=== PATIENT | male | born 1980 | race Caucasian/White ===

== ENCOUNTER 2018-05-21 12:03 | Day surgery (SDC) | payer OTHER ==
[2018-05-17 11:12] LABS: HEMATOCRIT 44.2 % (37.9-51.0); HEMOGLOBIN 15.4 g/dL (13.5-17.0); MEAN CORPUSCULAR HEMOGLOBIN 30.7 pg (27.0-33.4); MEAN CORPUSCULAR HGB CONC 34.8 g/dL (32.0-36.0); MEAN CORPUSCULAR VOLUME 88 fl (80-97); PLATELET COUNT 368 10^3/uL (150-450); RED BLOOD COUNT 5.01 10^6/uL (4.35-5.55); RED CELL DISTRIBUTION WIDTH 13.8 % (11.5-14.0); WHITE BLOOD COUNT 8.9 10^3/uL (4.0-10.5)
[2018-05-17 11:16] LABS: APPEARANCE,URINE CLEAR; BILIRUBIN,URINE NEGATIVE (NEGATIVE); COLOR,URINE YELLOW; GLUCOSE, URINE NEGATIVE (NEGATIVE); KETONES,URINE NEGATIVE (NEGATIVE); LEUKOCYTE ESTERASE,URINE NEGATIVE (NEGATIVE); NITRITE,URINE NEGATIVE (NEGATIVE); PROTEIN,URINE NEGATIVE (NEGATIVE); URINE SPECIFIC GRAVITY 1.021; UROBILINOGEN,URINE NEGATIVE mg/dL (<2.0)
--- NOTE | 2018-05-17 11:23 | RADIOLOGY REPORT (SQ) ---
EXAM DESCRIPTION: CHEST PA/LATERAL COMPLETED DATE/TIME: 05/17/2018 10:59 am REASON FOR STUDY: PRE-OP COMPARISON: None. EXAM PARAMETERS: NUMBER OF VIEWS: two views TECHNIQUE: Digital Frontal and Lateral radiographic views of the chest acquired. RADIATION DOSE: NA LIMITATIONS: none FINDINGS: LUNGS AND PLEURA: No opacities, masses or pneumothorax. No pleural effusion. MEDIASTINUM AND HILAR STRUCTURES: No masses or contour abnormalities. HEART AND VASCULAR STRUCTURES: Heart normal size. No evidence for failure. BONES: No acute findings. HARDWARE: None in the chest. OTHER: No other significant finding. IMPRESSION: NO SIGNIFICANT RADIOGRAPHIC FINDING IN THE CHEST. TECHNICAL DOCUMENTATION: JOB ID: [id number] [employer]- All Rights Reserved Reading location - IP/workstation name: [email or web address]
[2018-05-17 11:35] LABS: ANION GAP 12 (5-19); BLOOD UREA NITROGEN 23 mg/dL (7-20); CALCIUM 10.5 mg/dL (8.4-10.2); CARBON DIOXIDE 30 mmol/L (22-30); CHLORIDE 103 mmol/L (98-107); GLUCOSE 104 mg/dL (75-110); POTASSIUM 4.9 mmol/L (3.6-5.0); SODIUM 145.3 mmol/L (137-145)
[~2018-05-21 12:03] MED LIST: BUPIVACAINE HCL 0.5 % INJ/PF 30 ML SDV ONE; CEFAZOLIN 2 GM/D5W RTU 2 GM/50 ML RTUPB IV PRN; FENTANYL CITRATE INJ/PF 100 MCG/2 ML AMPUL ONE; LACTATED RINGERS 1000 ML IV PRN; LIDOCAINE 0.5% INJ-PF (5 MG/ML) 50 ML SDV SUBCUT PRN; MIDAZOLAM 2 MG/2 ML INJ ONE; PROPOFOL INJ 200 MG/20 ML VIAL IV ONE
--- NOTE | 2018-05-21 13:09 | EKG REPORT ---
SEVERITY:- NORMAL ECG - SINUS RHYTHM : Confirmed by: Faith Spain MD 21-May-2018 13:08:18
[2018-05-21] MEDS ORDERED: ACETAMINOPHEN 1,000 MG/100 ML RTUPB IV ONE (13:15)
[2018-05-21] MEDS ORDERED: CEFAZOLIN 2 GM/D5W RTU 2 GM/50 ML RTUPB IV ONE (13:16)
[2018-05-21] MEDS ORDERED: PROMETHAZINE HCL INJ 25 MG/1 ML VIAL IV PRN (13:55)
[2018-05-21] MEDS ORDERED: DIPHENHYDRAMINE HCL 50 MG/ML VIAL IV PRN (13:55)
[2018-05-21] MEDS ORDERED: MEPERIDINE HCL/PF INJ 25 MG/1 ML DISP.SYRIN IV PRN (13:55)
[2018-05-21] MEDS ORDERED: FENTANYL CITRATE INJ/PF 100 MCG/2 ML AMPUL IV PRN ×3 (13:55)
[2018-05-21] MEDS ORDERED: OXYCODONE-ACETAMINOPHEN 5-325 MG TABLET PO PRN (14:10)
[2018-05-21] MEDS ORDERED: MORPHINE SULFATE 10 MG/ML INJ IV PRN (14:10)
[2018-05-21] MEDS ORDERED: ONDANSETRON HCL INJ/PF 4 MG/2 ML SDV IV PRN (14:10)
--- NOTE | 2018-05-21 14:10 | Discharge Summary ---
Discharge Summary (SDC) - Discharge Final Diagnosis: Right 5th Metacarpal Base Fracture Date of Surgery: 05/21/18 Discharge Date: 05/21/18 Condition: Good Treatment or Instructions: Schedule Follow Up w/ Dr. Dallas Gray @ [facility] for Surgery to be seen in 10-14 days or as scheduled [place]: [place]: [place]: Ice and elevate Keep splint clean/dry/intact. If your fingers become numb please unwrap the Alphonse wrap but leave the splint in place, if the sensation does not return within 30 minutes please return to the emergency department. May begin finger range of motion attempting to make full fist. Please use ibuprofen (Motrin or Advil) 600-800 mg every 8 hours as needed for pain or fever DO NOT TAKE w/ TORADOL may use once TORADOL complete. You may also use acetaminophen (Tylenol) 1000 mg every 4-6 hours as needed for pain or fever. Please be aware that many medications contain acetaminophen, do not exceed a total of 1000 mg of acetaminophen every 6 hours. If ibuprofen and acetaminophen are not sufficient for your pain you may take the Percocet/[place]. Please be aware that the Percocet/[place] does contain Tylenol. Stool softener of choice when on pain medication. Prescriptions: Ketorolac Tromethamine [Toradol 10 mg Tablet] 10 mg PO Q8HP PRN #8 tablet PRN Reason: Oxycodone HCl/Acetaminophen [Percocet 5-325 mg Tablet] 1 tab PO Q6 PRN #25 tab PRN Reason: Discharge Diet: As Tolerated Respiratory Treatments at Home: Deep Breathing/Coughing Discharge Activity: No Lifting Over 10 Pounds, No Lifting/Push/Pulling Report the Following to Your Physician Immediately: Fever over 101 Degrees, Unusual Bleeding, Redness, Swelling, Warmth, Increased Soreness
--- NOTE | 2018-05-21 14:15 | Operative Report ---
Operative Report DATE OF SURGERY: 05/21/18 PREOPERATIVE DIAGNOSIS: Right intra-articular fifth metacarpal base fracture POSTOPERATIVE DIAGNOSIS: Same OPERATION: ORIF fifth intra-articular metacarpal base fracture SURGEON: ANTHONY SHARIF ANESTHESIA: GA COMPLICATIONS: None ESTIMATED BLOOD LOSS: Minimal PROCEDURE: Indication for above procedure: 38-year-old male who sustained injury to his right hand. Patient subsequently followed up at the [facility] where x-rays demonstrated fifth metacarpal base fracture and CT scan was done demonstrating widening diastases at the articular surface. At that point we discussed treatment options given the amount of intra-articular displacement decision was made to proceed with operative treatment despite delayed follow-up. Risks and benefits of the operative procedure were explained patient verbalized understanding consented for the procedure. Procedure In Detail: Patient was seen and evaluated in the preoperative holding area. The upper extremity was initialized and marked. Patient received 2g of Ancef IV for bacterial prophylaxis. Patient was taken back to the operative room where transferred to the operative table and placed under general anesthesia. Once they were adequately anesthetized a nonsterile tourniquet was placed on the upper extremity. A surgical team debriefing was performed ensuring all instrumentation was available, the surgical procedure was discussed with possible concerns reviewed. The upper extremity was prepped with chlorhexidine and alcohol and draped in a sterile fashion. A timeout was done identifying correct patient, procedure and extremity everyone in attendance agree with this and verbalized no concerns. The extremity was exsanguinated the tourniquet was inflated to 250 mmHg. Closed reduction was attempted to the fifth metacarpal base however given the longevity of the injury it was non-mobile. A 2 cm incision was made at the articular surface of the fifth metacarpal. Blunt dissection was performed a Nabb elevator was placed within the fracture site performing osteoclasis to free the underlying fragment. Once the fragment was adequately freed a 0.062 K wire was placed between the fourth and fifth metacarpal bases and maintaining reduction of the fifth metacarpal base articular surface there was evidence of bone loss centrally given the longevity however this bone loss was not correctable. While my therapy assistant maintained traction and reduction was held with a 0.62 K wire. A 0.045 K wire was placed obtaining fixation into the fragment and adjacent fourth metacarpal base. A second 0.045 K wire was placed obliquely from the fifth metacarpal into the articular fragment and adjacent fourth metacarpal base. At completion final C-arm fluoroscopy was obtained which demonstrated orthodoxy of fifth metacarpal base articular alignment was a small amount of bone loss along the central aspect but no articular step-off appreciated. There is no evidence of joint subluxation or dislocation. Wound was then copiously irrigated with normal saline. Skin was closed with interrupted 4-0 nylon suture. K wires were then kept outside the skin and bent. 20 cc of 0.5% bupivacaine without epinephrine was injected for postoperative pain control. Wound was dressed Xeroform 4 x 4's and patient was placed in a ulnar gutter splint leaving the IP joints free for range of motion. Tourniquet was deflated. Patient had good peripheral perfusion. Sponge counts, instrument counts, needle counts were correct. Patient was then awoken from anesthesia. Transferred from the operating room table to the operating room stretcher. There was no intraoperative complications patient tolerated procedure well stable to PACU. Postop plan: Patient followed up in 2 weeks at which point he will placed in a short arm cast with immobilization of the MCP joint and IP joints free. Will obtain radiographs out of splint at follow-up. Plan will be for pin removal 5-6 weeks postoperatively.
[2018-05-21] MEDS: FENTANYL CITRATE INJ/PF 100 MCG/2 ML AMPUL ONE ×2 (14:27→14:32)
--- NOTE | 2018-05-21 14:46 | RADIOLOGY REPORT (SQ) ---
EXAM DESCRIPTION: HAND RIGHT 2 VIEWS; NO CHG FLUORO COMPLETED DATE/TIME: 05/21/2018 2:31 pm REASON FOR STUDY: RIGHT 5TH METACARPAL PERCUTANEOUS PINNING ASST WITH FLUORO IN OR S62.316A DISP FX OF BASE OF FIFTH METACARPAL BONE, RIGHT KLINE COMPARISON: None. FLUOROSCOPY TIME: 4 images saved to PACS. TECHNIQUE: Intra-operative images acquired during surgical procedure to evaluate progress. NUMBER OF IMAGES: 4 LIMITATIONS: None. FINDINGS: Intraoperative images obtained during an are for localization. Norma wire fixation ov erlie the proximal 3rd through metacarpals. IMPRESSION: IMAGE(S) OBTAINED DURING PROCEDURE. Please see operative report for detailed descriptio n of the procedure. COMMENT: Quality ID [id number]: Final reports for procedures using fluoroscopy that document radiation exp osure indices, or exposure time and number of fluorographic images (if radiation exposure indices are not available) Please consult full operative report of the attending physician for description of the procedure. TECHNICAL DOCUMENTATION: JOB ID: [id number] [employer]- All Rights Reserved Reading location - IP/workstation name: [facility]-[email or web address]
--- NOTE | 2018-05-21 14:46 | RADIOLOGY REPORT (SQ) ---
EXAM DESCRIPTION: HAND RIGHT 2 VIEWS; NO CHG FLUORO COMPLETED DATE/TIME: 05/21/2018 2:31 pm REASON FOR STUDY: RIGHT 5TH METACARPAL PERCUTANEOUS PINNING ASST WITH FLUORO IN OR S62.316A DISP FX OF BASE OF FIFTH METACARPAL BONE, RIGHT KLINE COMPARISON: None. FLUOROSCOPY TIME: 4 images saved to PACS. TECHNIQUE: Intra-operative images acquired during surgical procedure to evaluate progress. NUMBER OF IMAGES: 4 LIMITATIONS: None. FINDINGS: Intraoperative images obtained during an are for localization. Norma wire fixation ov erlie the proximal 3rd through metacarpals. IMPRESSION: IMAGE(S) OBTAINED DURING PROCEDURE. Please see operative report for detailed descriptio n of the procedure. COMMENT: Quality ID [id number]: Final reports for procedures using fluoroscopy that document radiation exp osure indices, or exposure time and number of fluorographic images (if radiation exposure indices are not available) Please consult full operative report of the attending physician for description of the procedure. TECHNICAL DOCUMENTATION: JOB ID: [id number] [employer]- All Rights Reserved Reading location - IP/workstation name: [facility]-[email or web address]
[2018-05-21] MEDS ORDERED: LIDOCAINE 2% INJ-PF (20 MG/ML) 2 ML AMPUL ONE (15:06)
[2018-05-21] MEDS ORDERED: ONDANSETRON HCL INJ/PF 4 MG/2 ML SDV ONE (15:06)
[2018-05-21] MEDS ORDERED: DEXAMETHASONE SOD PHOSPHATE INJ 4 MG/1 ML VIAL ONE (15:06)
[2018-05-21] MEDS ORDERED: KETOROLAC TROMETHAMINE 60 MG/2 ML SDV ONE (15:06)
[2018-05-21] MEDS ORDERED: OXYCODONE-ACETAMINOPHEN 5-325 MG TABLET ONE (15:12)
[2018-05-21 16:35] VITALS: BP 134/88
== END 2018-05-21 16:15 | disposition home or self-care (01) ==
LOC: OROUT 12:03
PROVIDERS: ATTEND Orthopaedic Surgery
DX: S62.316A Displaced fracture of base of fifth metacarpal bone, right hand, initial encounter for closed fracture (principal); W23.0XXA Caught, crushed, jammed, or pinched between moving objects, initial encounter; F17.210 Nicotine dependence, cigarettes, uncomplicated
CPT/HCPCS: 36415; 85027; 80048; 81001; 71046; 73120; 93005; 93010; 26615; C1713; J2250; J3490 ×2; J1100; J1885; J3010; J2405; J2704; J0690; J0131; 01820